=== PATIENT | male | born 2005 | race African-American/Black ===

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

== ENCOUNTER 2025-05-24 18:47 | Emergency (ER) | payer BC, MEDICAID ==
[~2025-05-24] VITALS: Ht 175.3 cm; Wt 97.0 kg
[~2025-05-24 18:47] MED LIST: HYDR-3735 MT
[2025-05-24 18:49] VITALS: O2SAT 98
[2025-05-24 20:35] VITALS: BP 135/93; PULSE 89; RESP 20; TEMP 36.8; O2SAT 98
== END 2025-05-24 21:00 | disposition home or self-care (01) ==
LOC: ER 18:47
DX: F41.9 Anxiety disorder, unspecified (principal); I10 Essential (primary) hypertension; F20.9 Schizophrenia, unspecified; F31.9 Bipolar disorder, unspecified; Z79.899 Other long term (current) drug therapy
CPT/HCPCS: 99283